=== PATIENT | female | born 1950 | race Caucasian/White ===

== ENCOUNTER 2016-09-10 07:20 | Emergency (ER) | payer MEDICARE, BC ==
--- NOTE | 2016-09-10 08:03 | UC ---
Respiratory Complaint HPI - HPI Summary HPI Summary: cough , chest congestion x 1 days no fever, no chills, + chest tightness, sore throat - History of Current Complaint Chief Complaint: UCRespiratory Stated Complaint: CHEST CONGESTION Time Seen by Provider: 09/10/16 07:25 Hx Obtained From: Patient Onset/Duration: Sudden Onset, Lasting Days - 1, Still Present Timing: Constant Severity Initially: Moderate Severity Currently: Moderate Character: Cough: Productive - green sputum Aggravating Factors: Exertion, Deep Breaths Alleviating Factors: Nothing Associated Signs And Symptoms: Positive: Dyspnea, Wheezing, URI, Nasal Congestion. Negative: Fever, Chills, Pleuritic Chest Pain, Hemoptysis, Dizziness, Calf Pain, Calf Swelling, Edema - Allergies/Home Medications Allergies/Adverse Reactions: Allergies Allergy/AdvReac Type Severity Reaction Status Date / Time No Known Allergies Allergy Verified 09/10/16 07:32 PMH/Surg Hx/FS Hx/Imm Hx Endocrine History Of: Reports: Thyroid Disease Respiratory History Of: Reports: Asthma - Surgical History Surgical History: Yes Surgery Procedure, Year, and Place: 2 c-sections, hysterectomy, L lobe removed from thyroid - Family History Known Family History: Positive: Cardiac Disease - father Negative: Hypertension, Diabetes - Social History Alcohol Use: Occasionally Substance Use Type: None Smoking Status (MU): Never Smoked Tobacco - Immunization History Most Recent Influenza Vaccination: [id number] Review of Systems Constitutional: Negative Skin: Negative Eyes: Negative ENT: Sore Throat Respiratory: Cough Cardiovascular: Negative Gastrointestinal: Negative All Other Systems Reviewed And Are Negative: Yes Physical Exam Triage Information Reviewed: Yes Appearance: Well-Appearing, No Pain Distress, Well-Nourished Vital Signs: Initial Vital Signs Temp 99.3 F 09/10/16 07:34 Pulse 84 09/10/16 07:34 Resp 18 09/10/16 07:34 BP 138/84 09/10/16 07:34 Pulse Ox 98 09/10/16 07:34 Vital Signs Reviewed: Yes Eyes: Positive: Conjunctiva Clear ENT: Positive: Normal ENT inspection, Hearing grossly normal, Pharynx normal Neck: Positive: Supple, Nontender, No Lymphadenopathy Respiratory: Positive: Chest non-tender, Lungs clear, Normal breath sounds Cardiovascular: Positive: RRR, No Murmur, Pulses Normal Abdominal Exam: Normal Skin Exam: Normal UC Diagnostic Evaluation - Laboratory O2 Sat by Pulse Oximetry: 98 Respiratory Course/Dx - Differential Dx/Diagnosis Provider Diagnoses: uri Discharge - Discharge Plan Condition: Stable Disposition: HOME Patient Education Materials: Upper Respiratory Infection (ED) Referrals: Kayden Cardenas MD [Primary Care Provider] - 7 Days Additional Instructions: viral illness, no need for Abx at this time cont. with rest, increase fluid, Mucinex , albuterol inh as needed for wheezing and sob
[2016-09-10 08:25] VITALS: BP 138/90
== END 2016-09-10 08:16 | disposition home or self-care (01) ==
LOC: UCCORT 07:20
DX: J06.9 Acute upper respiratory infection, unspecified (principal); R07.89 Other chest pain
CPT/HCPCS: 93005; 99212; G0463

== ENCOUNTER 2016-09-16 12:00 | Emergency (ER) | payer MEDICARE, BC ==
[2016-09-16 12:31] VITALS: BP 136/86
--- NOTE | 2016-09-16 12:57 | UC ---
Respiratory Complaint HPI - HPI Summary HPI Summary: Seen here 09/10/[address], 24 hours of early congestion. Returns to for increasing cough, trouble breathing that is only temporarily alleviated by her inhaler. Nasal/sinus congestion has increased as well. Denies fever or focal pain. Is planning to go on family trip tomorrow. - History of Current Complaint Chief Complaint: UCRespiratory Stated Complaint: COUGH,CONGESTION Time Seen by Provider: 09/16/16 12:32 Hx Obtained From: Patient ?: No Onset/Duration: Gradual Onset, Lasting Days Timing: Constant Severity Initially: Mild Severity Currently: Moderate Character: Cough: Productive Aggravating Factors: Deep Breaths, Recumbent Position Alleviating Factors: Bronchodilator, OTC Meds, Upright Position Associated Signs And Symptoms: Positive: Wheezing, URI, Nasal Congestion - Risk Factors Pulmonary Embolism Risk Factors: Negative Cardiac Risk Factors: Negative Pseudomonas Risk Factors: Negative - Allergies/Home Medications Allergies/Adverse Reactions: Allergies Allergy/AdvReac Type Severity Reaction Status Date / Time No Known Allergies Allergy Verified 09/16/16 12:25 Home Medications: Home Medications Lansoprazole [Prevacid] 40 mg PO DAILY 09/16/16 [History Confirmed 09/16/16] PMH/Surg Hx/FS Hx/Imm Hx Endocrine History Of: Reports: Thyroid Disease Respiratory History Of: Reports: Asthma - Surgical History Surgical History: Yes Surgery Procedure, Year, and Place: 2 c-sections, hysterectomy, L lobe removed from thyroid - Family History Known Family History: Positive: Cardiac Disease - father Negative: Hypertension, Diabetes - Social History Lives: With Family Alcohol Use: Occasionally Substance Use Type: None Smoking Status (MU): Never Smoked Tobacco - Immunization History Most Recent Influenza Vaccination: [id number] Review of Systems Constitutional: Negative Skin: Negative Eyes: Negative ENT: Sore Throat, Nasal Discharge Respiratory: Shortness Of Breath, Cough Cardiovascular: Negative Gastrointestinal: Negative Genitourinary: Negative Motor: Negative Neurovascular: Negative Musculoskeletal: Negative Neurological: Negative Psychological: Negative All Other Systems Reviewed And Are Negative: Yes Physical Exam Triage Information Reviewed: Yes Appearance: Well-Appearing, No Pain Distress, Well-Nourished Vital Signs: Initial Vital Signs Temp 98.4 F 09/16/16 12:27 Pulse 72 09/16/16 12:27 Resp 20 09/16/16 12:27 BP 136/86 09/16/16 12:27 Pulse Ox 100 09/16/16 12:27 Vital Signs Reviewed: Yes Eye Exam: Normal Eyes: Positive: Conjunctiva Clear ENT: Positive: Hearing grossly normal, Nasal congestion, Nasal drainage, TMs normal, Other: - no acute sinus tenderness. Negative: Tonsillar swelling, Tonsillar exudate Dental Exam: Normal Neck exam: Normal Respiratory Exam: Normal Respiratory: Positive: Chest non-tender, Lungs clear, Normal breath sounds, No respiratory distress, No accessory muscle use Cardiovascular Exam: Normal Cardiovascular: Positive: RRR, No Murmur Musculoskeletal Exam: Normal Neurological Exam: Normal Psychological Exam: Normal Skin Exam: Normal Diagnostic Evaluation - Laboratory O2 Sat by Pulse Oximetry: 100 Respiratory Course/Dx - Differential Dx/Diagnosis Provider Diagnoses: URI, likely viral. asthma exacerbation Discharge - Discharge Plan Condition: Stable Disposition: HOME Prescriptions: Benzonatate CAP* [Tessalon CAP*] 100 mg PO TID PRN #30 cap PRN Reason: Cough Guaifenesin-Codeine [Guaiatussin AC] 5 - 10 ml PO Q6H #240 ml MDD 40mL predniSONE TAB* [Deltasone TAB*] 40 mg PO DAILY #8 tab Patient Education Materials: Upper Respiratory Infection (ED) Referrals: Kayden Cardenas MD [Primary Care Provider] - Additional Instructions: Call or return if you develop increasing fever, shortness of breath, chest pain , bloody sputum, or otherwise worsen. If you have not improved at all after several days, contact your primary care physician or return here.
== END 2016-09-16 12:58 | disposition home or self-care (01) ==
LOC: UCCORT 12:00
DX: J06.9 Acute upper respiratory infection, unspecified (principal); J45.901 Unspecified asthma with (acute) exacerbation
CPT/HCPCS: 99212; G0463

== ENCOUNTER 2016-09-26 17:23 | Emergency (ER) | payer MEDICARE, BC ==
[2016-09-26 17:54] VITALS: BP 147/87
--- NOTE | 2016-09-26 18:04 | UC ---
Lower Extremity/Ankle HPI - HPI Summary HPI Summary: RIGHT ANKLE INJURY. PT WAS COMING DOWN THE STAIRS. HOPPED OVER LAST STEP AND ROLLED HER ANKLE. She tried to skip over the bottom step just prior to coming in and landed on her foot and then rolled sideways. Able to bare weight but it is painful. slight swelling. no bruising. incident happened about 30 mins prior to being seen. no change in sensation. She immediately put ice on it. - History of Current Complaint Chief Complaint: UCLowerExtremity Stated Complaint: RT ANKLE INJURY Time Seen by Provider: 09/26/16 18:01 - Allergies/Home Medications Allergies/Adverse Reactions: Allergies Allergy/AdvReac Type Severity Reaction Status Date / Time No Known Allergies Allergy Verified 09/26/16 17:44 PMH/Surg Hx/FS Hx/Imm Hx Previously Healthy: Yes Endocrine History Of: Reports: Thyroid Disease Respiratory History Of: Reports: Asthma - Surgical History Surgical History: Yes Surgery Procedure, Year, and Place: 2 c-sections, hysterectomy, L lobe removed from thyroid - Family History Known Family History: Positive: Cardiac Disease - father, 1/2 brother., Other - 1/2 sisters with ovarian ca. adopted but recently discovered father. Negative: Hypertension, Diabetes - Social History Alcohol Use: Occasionally Substance Use Type: None Smoking Status (MU): Never Smoked Tobacco - Immunization History Most Recent Influenza Vaccination: [id number] Review of Systems Constitutional: Negative Skin: Negative Eyes: Negative ENT: Negative Respiratory: Negative Cardiovascular: Negative Gastrointestinal: Negative Genitourinary: Negative Motor: Negative Neurovascular: Negative Musculoskeletal: Other: - rt ankle pain Neurological: Negative Psychological: Negative All Other Systems Reviewed And Are Negative: Yes Physical Exam Triage Information Reviewed: Yes Appearance: Well-Appearing - sitting with foot elevated with ice. very pleasant. Vital Signs: Initial Vital Signs Temp 97.4 F 09/26/16 17:48 Pulse 77 09/26/16 17:48 Resp 16 09/26/16 17:48 BP 147/87 09/26/16 17:48 Pulse Ox 97 09/26/16 17:48 Vital Signs Reviewed: Yes Eye Exam: Normal ENT Exam: Normal Neck exam: Normal Neck: Positive: Supple, Nontender, No Lymphadenopathy Respiratory Exam: Normal Respiratory: Positive: Lungs clear, Normal breath sounds, No respiratory distress Cardiovascular Exam: Normal Cardiovascular: Positive: RRR, No Murmur, Pulses Normal, Brisk Capillary Refill Abdominal Exam: Normal Musculoskeletal: Positive: Other: - rt ankle with very mild swelling over right anterolateral ankle. no bruising. mortise intact. FROM. FROM in toes. 5/5 strength plantar and dorsiflexion. CR brisk. + 2 DP/PT pulses. she ambulates with mild limp. sensation intact. Neurological Exam: Normal Psychological Exam: Normal Skin Exam: Normal Lower Extremity Course/Dx - Course Course Of Treatment: Rt ankle xray - There is mild soft tissue swelling adjacent to the anterior lateral aspect of. the ankle. No fracture is seen. Joint spaces appear maintained. IMPRESSION: NO EVIDENCE FOR FRACTURE. - Differential Dx/Diagnosis Differential Diagnosis/HQI/PQRI: Contusion, Dislocation, Fracture (Closed), Sprain, Strain Provider Diagnoses: RT ankle sprain, lateral Discharge - Discharge Plan Condition: Stable Disposition: HOME Patient Education Materials: Ankle Sprain (ED), Ankle Exercises (GEN) Referrals: Kayden Cardenas MD [Primary Care Provider] - 4 Days Additional Instructions: Firm soled shoe and ankle support is important. Make sure to ice 20 mins on/off with towel barrier. Ibuporfen 600mgs every 8 hrs for the first few days with food. stop and call your PCP with any stomach issues with taking it. No driving until your primary care releases you to do so. You should reconsider crutches if it is difficult for you to walk on it.
--- NOTE | 2016-09-26 18:54 | RAD ---
INDICATION: Right ankle injury. TECHNIQUE: 3 views of the right ankle were obtained. FINDINGS: There is mild soft tissue swelling adjacent to the anterior lateral aspect of the ankle. No fracture is seen. Joint spaces appear maintained. IMPRESSION: NO EVIDENCE FOR FRACTURE.
== END 2016-09-26 19:27 | disposition home or self-care (01) ==
LOC: UCCORT 17:23
DX: S93.401A Sprain of unspecified ligament of right ankle, initial encounter (principal); X50.1XXA Overexertion from prolonged static or awkward postures, initial encounter; Y93.9 Activity, unspecified; Y92.9 Unspecified place or not applicable
CPT/HCPCS: 99212; G0463

== ENCOUNTER 2017-03-24 19:38 | Emergency (ER) | payer MEDICARE, BC ==
[2017-03-24 21:00] VITALS: BP 150/95
--- NOTE | 2017-03-24 21:11 | UC ---
Complaint Female HPI - HPI Summary HPI Summary: 66 year old female presents with concern about UTI. sx starting with extreme fatigue this morning. she has severe muscle aches, stomach ache and pain in the hips down her legs. She also has a headache. she felt fin last night when she went to bed. she also has some loose stools. a few days ago she has some increased frequency with urination but the sx went away and she forgot about it. today she remembered that when she gets a UTI she has the muscle aches and fatigue. She feels febriile but does not have a temp. She wants to make sure that she does not have a UTI. she has not tried taking anything for her sx.ALSO HAVING LOSS OF APETITE AND SOME ABDOMINAL PAIN WITH MOVEMENT AND LOW GRADE FEVER AT HOME. [ End ] - History Of Current Complaint Chief Complaint: UCGeneralIllness Stated Complaint: FEVER FATIGUE HEADACHE ACHY Time Seen by Provider: 03/24/17 21:04 Hx Obtained From: Patient, Family/Fittings Finisher ?: No Onset/Duration: Sudden Onset Timing: Constant Severity Initially: Mild Severity Currently: Moderate Aggravating Factor(s): Movement Alleviating Factor(s): Position Associated Signs And Symptoms: Positive: Fever, Back Pain - Allergies/Home Medications Allergies/Adverse Reactions: Allergies Allergy/AdvReac Type Severity Reaction Status Date / Time No Known Allergies Allergy Verified 03/24/17 21:00 Home Medications: Home Medications Zolpidem TAB* [Ambien TAB*] 10 mg PO BEDTIME PRN 03/24/17 [History Confirmed 05/30] PMH/Surg Hx/FS Hx/Imm Hx Previously Healthy: Yes - Surgical History Surgical History: Yes Surgery Procedure, Year, and Place: 2 c-sections, hysterectomy, L lobe removed from thyroid - Family History Known Family History: Positive: Cardiac Disease - father, 1/2 brother., Other - 1/2 sisters with ovarian ca. adopted but recently discovered father. Negative: Hypertension, Diabetes - Social History Lives: With Family Alcohol Use: Occasionally Substance Use Type: None Smoking Status (MU): Never Smoked Tobacco - Immunization History Most Recent Influenza Vaccination: [id number] Review of Systems Constitutional: Fever, Chills, Fatigue Gastrointestinal: Abdominal Pain, Diarrhea Musculoskeletal: Myalgia All Other Systems Reviewed And Are Negative: Yes Physical Exam Triage Information Reviewed: Yes Appearance: Well-Appearing, Pain Distress - mild Vital Signs: Initial Vital Signs Temp 99.4 F 03/24/17 20:55 Pulse 97 03/24/17 20:55 Resp 16 03/24/17 20:55 BP 150/95 03/24/17 20:55 Pulse Ox 100 03/24/17 20:55 Vital Signs Reviewed: Yes Eye Exam: Normal ENT Exam: Normal Dental Exam: Normal Neck exam: Normal Neck: Positive: 1 Respiratory Exam: Normal Cardiovascular Exam: Normal Abdominal Exam: Normal Abdomen Description: Positive: Guarding, Other: - significant RLQ tednerness to palpation. Negative: CVA Tenderness (R), CVA Tenderness (L), Distended Musculoskeletal Exam: Normal Neurological Exam: Normal Psychological Exam: Normal Skin Exam: Normal Complaint Female Dx - Course Course Of Treatment: Concern for diverticulitis / appendicitis and patient would benefit from labs and more of a work up at this time and will got to [place] [facility] and spoke with Norberto Saravia who will accept the pt and patient desires to go by automobile - Differential Dx/Diagnosis Provider Diagnoses: RLQ abdominal pain Discharge - Discharge Plan Condition: Fair Disposition: OTHER Discharge Disposition Comment: to [place] [facility] Patient Education Materials: Acute Abdominal Pain (ED) Referrals: Kayden Cardenas MD [Primary Care Provider] - 3 Days (PLEASE GO DIRECTLY TO THE EMERGENCY ROOM )
== END 2017-03-24 21:37 ==
LOC: UCCORT 19:38
DX: R10.31 Right lower quadrant pain (principal); R53.83 Other fatigue; M79.1 Myalgia; R51 Headache; R50.9 Fever, unspecified; Z90.710 Acquired absence of both cervix and uterus
CPT/HCPCS: 81003; 87077; 87086; 99211; G0463

== ENCOUNTER 2017-08-01 20:29 | Emergency (ER) | payer MEDICARE, BC ==
[2017-08-01] MEDS ORDERED: Albuterol 2.5 MG/3 ML NEB.SOL* (0.083%) INH ONE (20:49)
[2017-08-01 20:50] VITALS: BP 142/80
--- NOTE | 2017-08-01 21:23 | UC ---
Shortness of Breath HPI - HPI Summary HPI Summary: SHORTNESS OF BREATH X 1 DAYS SUDDEN ONSET, NO COUGH , NO WHEEZING, NO CHEST PAIN OR PALPITATION NO FEVER, OR CHILLS, HAD ALBUTEROL AT HOME WITH NO IMPROVEMENT + RECENT TRAVEL - History of Current Complaint Chief Complaint: UCRespiratory Stated Complaint: ASTHMA Time Seen by Provider: 08/01/17 20:37 Hx Obtained From: Patient Onset/Duration: Sudden Onset, Lasting Days - 1, Still Present Current Severity: Moderate Dyspnea At: Rest Aggrevating Factors: Movement, Deep Breaths Alleviating Factors: Nothing Associated Signs & Symptoms: Positive: Cough (Nonproductive). Negative: Wheezing, Chest Pain w/Cough, Fever, Chills, Diaphoresis, Nasal Congestion, Dizzy, Calf Pain/Swelling, Edema - Allergy/Home Medications Allergies/Adverse Reactions: Allergies Allergy/AdvReac Type Severity Reaction Status Date / Time No Known Allergies Allergy Verified 08/01/17 20:50 PMH/Surg Hx/FS Hx/Imm Hx Respiratory History: Asthma - Surgical History Surgical History: Yes Surgery Procedure, Year, and Place: 2 c-sections, hysterectomy, L lobe removed from thyroid - Family History Known Family History: Positive: Cardiac Disease - father, 1/2 brother., Other - 1/2 sisters with ovarian ca. adopted but recently discovered father. Negative: Hypertension, Diabetes - Social History Alcohol Use: Occasionally Substance Use Type: None Smoking Status (MU): Never Smoked Tobacco - Immunization History Most Recent Influenza Vaccination: [id number] Review of Systems Constitutional: Negative Skin: Negative Eyes: Negative ENT: Negative Respiratory: Shortness Of Breath, Cough Cardiovascular: Negative Is Patient Immunocompromised?: No All Other Systems Reviewed And Are Negative: Yes Physical Exam Triage Information Reviewed: Yes Appearance: Pain Distress Vital Signs: Initial Vital Signs Temp 98.2 F 08/01/17 20:48 Pulse 108 08/01/17 20:48 Resp 20 08/01/17 20:48 BP 142/80 08/01/17 20:48 Pulse Ox 96 08/01/17 20:48 Vital Signs Reviewed: Yes Eyes: Positive: Conjunctiva Clear ENT: Positive: Normal ENT inspection, Hearing grossly normal, Pharynx normal Neck exam: Normal Neck: Positive: Supple, Nontender, No Lymphadenopathy Respiratory: Positive: Chest non-tender, Lungs clear, Normal breath sounds, No respiratory distress Cardiovascular: Positive: RRR, No Murmur, Pulses Normal Bowel Sounds: Positive: Present Musculoskeletal Exam: Normal Skin Exam: Normal Shortness of Breath Dx - Differential Dx/Diagnosis Provider Diagnoses: SHORTNESS OF BREATH Discharge - Discharge Plan Condition: Fair Disposition: [facility] Patient Education Materials: Dyspnea (ED) Referrals: Kayden Cardenas MD [Primary Care Provider] - Additional Instructions: concern about PE / pulmonary embolism please go to [facility] ED for eval
== END 2017-08-01 21:20 | disposition short-term general hospital (02) ==
LOC: UCCORT 20:29
DX: R06.02 Shortness of breath (principal); R05 Cough; J45.909 Unspecified asthma, uncomplicated
CPT/HCPCS: 99212; G0463

== ENCOUNTER 2018-09-16 11:23 | Emergency (ER) | payer MEDICARE, BC ==
[2018-09-16 13:10] VITALS: BP 129/79
--- NOTE | 2018-09-16 13:51 | UC ---
Respiratory Complaint HPI - HPI Summary HPI Summary: WAS DIAGNOSED WITH VIRAL ILLNESS 3 WEEKS AGO AND RECOVERED. SHE DEVELOPED THE SAME SX AT THAT TIME BUT HAS NOT RECOVERED. FEELS SOB WITH INCREASED COUGH - WORSE AT NIGHT TIME AND FIRST THING IN THE MORNING. FEELS CRACKLY IN HER LUNGS. NO FEVER. ALBUTEROL HELPS BUT ONLY TRANSIENTLY. - History of Current Complaint Chief Complaint: UCGeneralIllness Stated Complaint: COUGH,FATIGUE,DIARRHEA Time Seen by Provider: 09/16/18 12:52 Hx Obtained From: Patient Onset/Duration: Gradual Onset, Lasting Weeks, Still Present Timing: Constant Severity Initially: Moderate Severity Currently: Moderate Pain Intensity: 0 Pain Scale Used: 0-10 Numeric Aggravating Factors: Deep Breaths, Recumbent Position Alleviating Factors: Bronchodilator Associated Signs And Symptoms: Positive: Dyspnea, Chills, URI - Allergies/Home Medications Allergies/Adverse Reactions: Allergies Allergy/AdvReac Type Severity Reaction Status Date / Time No Known Allergies Allergy Verified 09/16/18 13:02 Home Medications: Home Medications Amlodipine Besylate [Norvasc 5 mg tab] 5 mg PO DAILY 09/16/18 [History Confirmed 09/16/18] Cholecalciferol (Vitamin D3) [Vitamin D3] 1,000 unit PO DAILY 09/16/18 [History Confirmed 09/16/18] Lansoprazole [Prevacid] 30 mg PO DAILY 09/16/18 [History Confirmed 09/16/18] PMH/Surg Hx/FS Hx/Imm Hx Endocrine History: Hypothyroidism, Dyslipidemia Respiratory History: Asthma - Surgical History Surgical History: Yes Surgery Procedure, Year, and Place: 2 c-sections, hysterectomy, L lobe removed from thyroid - Family History Known Family History: Positive: Cardiac Disease - father, 1/2 brother., Other - 1/2 sisters with ovarian ca. adopted but recently discovered father. Negative: Hypertension, Diabetes - Social History Alcohol Use: Occasionally Substance Use Type: None Smoking Status (MU): Never Smoked Tobacco - Immunization History Most Recent Influenza Vaccination: [id number] Review of Systems All Other Systems Reviewed And Are Negative: Yes Constitutional: Positive: Fatigue Respiratory: Positive: Shortness Of Breath, Cough Cardiovascular: Positive: Negative Gastrointestinal: Positive: Negative Physical Exam Triage Information Reviewed: Yes Appearance: Well-Appearing, No Pain Distress, Well-Nourished Vital Signs: Initial Vital Signs Temp 97.9 F 09/16/18 13:06 Pulse 66 09/16/18 13:06 Resp 17 09/16/18 13:06 BP 129/79 09/16/18 13:06 Pulse Ox 97 09/16/18 13:06 Vital Signs Reviewed: Yes Eyes: Positive: Conjunctiva Clear ENT: Positive: Hearing grossly normal, Pharynx normal, TMs normal Neck: Positive: Supple, Nontender, No Lymphadenopathy Respiratory Exam: Normal Cardiovascular Exam: Normal Abdomen Description: Positive: Soft Musculoskeletal: Positive: No Edema Neurological: Positive: Alert Psychological: Positive: Age Appropriate Behavior Skin: Negative: Rashes Respiratory Course/Dx - Differential Dx/Diagnosis Provider Diagnosis: Acute bronchitis Discharge - Sign-Out/Discharge Documenting (check all that apply): Patient Departure All imaging exams completed and their final reports reviewed: No Studies - Discharge Plan Condition: Stable Disposition: HOME Prescriptions: Azithromycin 500 mg PO DAILY #5 tab predniSONE TAB* [Deltasone 20 MG TAB*] 40 mg PO DAILY #10 tab Patient Education Materials: Acute Bronchitis (ED) Referrals: Kayden Cardenas MD [Primary Care Provider] - If Needed Additional Instructions: YOUR SYMPTOMS MAY BE VIRALLY MEDIATED BUT GIVEN THE LENGTH OF TIME YOU HAVE BEEN ILL WE WILL COVER YOU WITH ANTIBIOTICS. IF YOU START THE MEDICINE BE SURE TO TAKE IT FOR THE FULL COURSE. REST, HYDRATE, OTC MEDS NEEDED. WILL ALSO TREAT WITH PREDNISONE TO HELP WITH AIRWAY INFLAMMATION. CONTINUE YOUR ALBUTEROL PRESCRIBED. SEEK FOLLOW-UP WITH YOUR PCP IF YOU ARE NOT IMPROVING OVER THE NEXT 1-2 WEEKS. - Billing Disposition and Condition Condition: STABLE Disposition: Home
== END 2018-09-16 13:54 | disposition home or self-care (01) ==
LOC: UCCORT 11:23
DX: J20.9 Acute bronchitis, unspecified (principal); J45.909 Unspecified asthma, uncomplicated
CPT/HCPCS: 99212; G0463